=== PATIENT | female | born 1930 | race Caucasian/White ===

== ENCOUNTER → 2016-08-27 | Outpatient (CLI) | payer BC ==
[~2016-08-27] MED LIST: ARC10 PO; ASPEC81 PO; ATOR10TA82 PO; ATV5 PO; CALCTAB5 PO; CNT PO; FLUO20CA35 PO; MULT-190 PO; SYN150 PO
== END | disposition home or self-care (01) ==
LOC: C.LABSPEC 12:53
PROVIDERS: ATTEND Internal Medicine
DX: E03.9 Hypothyroidism, unspecified (principal)

== ENCOUNTER → 2016-09-04 | Outpatient (CLI) | payer BC ==
[~2016-09-04] MED LIST changes: -ATOR10TA82 PO; +ATOR10TA88 PO
--- NOTE | 2016-09-04 16:30 | DIAGNOSTIC IMAGING REPORT ---
LEFT SHOULDER 3 VIEWS HISTORY: LEFT SHOULDER PAIN COMPARISON: None. FINDINGS: There is no fracture or dislocation. There is distal resection of the left clavicle. There is narrowing of the subacromial space. Moderate to space narrowing at the glenohumeral joint with marginal osteophytes. There appears to be a 7 mm intra-articular loose body within the subacromial space. IMPRESSION: 1. No acute fracture or dislocation within the left shoulder. 2. Moderate glenohumeral joint osteoarthritis. 3. A 7 mm intra-articular loose body within the subacromial space. 4. Narrowing of the subacromial space consistent with chronic rotator cuff injury. Electronically signed by: Seth Delgado M.D. 09/04/2016 4:28 PM Dictated Date/Time: 09/04/2016 4:26 PM
== END | disposition home or self-care (01) ==
LOC: C.RDSM 15:33
PROVIDERS: ATTEND Physical Medicine & Rehabilitation Sports Medicine
DX: M25.512 Pain in left shoulder (principal); M19.012 Primary osteoarthritis, left shoulder; M24.012 Loose body in left shoulder; M25.812 Other specified joint disorders, left shoulder

== ENCOUNTER → 2017-05-06 | Outpatient (CLI) | payer BC ==
--- NOTE | 2017-05-06 17:16 | MAMMOGRAPHY REPORT ---
BILATERAL DIGITAL SCREENING MAMMOGRAM WITH CAD: 05/06/2017 CLINICAL HISTORY: Routine screening. Patient has no complaints. TECHNIQUE: Bilateral CC and MLO views were obtained. Current study was also evaluated with a Compute r Aided Detection (CAD) system. COMPARISON: Comparison is made to exams dated: 05/02/2016 mammogram, 02/07/2015 mammogram, 01/12/2014 ma mmogram, 08/06/2010 mammogram, 02/14/2015 mammogram - [facility], and 07/11/2008. BREAST COMPOSITION: There are scattered areas of fibroglandular density in both breasts. FINDINGS: There is a stable ribbon shaped metallic biopsy marker clip in the right upper outer quadra nt. Mild vascular calcification and scattered benign rim and round calcifications in the breasts. N o new suspicious mass, architectural distortion or cluster of microcalcifications is seen. IMPRESSION: ACR BI-RADS CATEGORY 1: NEGATIVE There is no mammographic evidence of malignancy. A 1 year screening mammogram is recommended. The pa tient will receive written notification of the results. Approximately 10% of breast cancers are not detected with mammography. A negative mammographic report should not delay biopsy if a clinically suggestive mass is present. Laura Alba M.D. ay/:05/06/2017 15:21:39 Hotel Baggage Handler: Mey CISSE(R)(M), [facility] letter sent: Normal 1/2 BI-RADS Code: ACR BI-RADS Category 1: Negative
== END | disposition home or self-care (01) ==
LOC: C.MAMM 13:48
PROVIDERS: ATTEND Internal Medicine
DX: Z12.31 Encounter for screening mammogram for malignant neoplasm of breast (principal)

== ENCOUNTER → 2017-08-29 | Outpatient (CLI) | payer BC ==
[~2017-08-29] MED LIST changes: +ATOR10TA82 PO; -ATOR10TA88 PO
[2017-09-02 15:49] LABS: FECAL OCCULT BLOOD #1 NEGATIVE (NEGATIVE); FECAL OCCULT BLOOD #2 POSITIVE (NEGATIVE); FECAL OCCULT BLOOD #3 POSITIVE (NEGATIVE)
== END | disposition home or self-care (01) ==
LOC: C.LABSPEC 14:50
PROVIDERS: ATTEND Internal Medicine
DX: Z12.11 Encounter for screening for malignant neoplasm of colon (principal)

== ENCOUNTER → 2017-10-01 | Outpatient (CLI) | payer BC ==
[2017-10-01 14:33] LABS: BASO % 0.7 %; BASO ABS # 0.05 K/uL (0-0.2); EOS % 7.2 %; EOS ABS # 0.55 K/uL (0-0.5); HEMATOCRIT 40.1 % (37-47); HEMOGLOBIN 12.3 g/dL (12.0-16.0); IG# 0.01 K/uL (0.00-0.02); LYMPH % 15.7 %; MEAN CELL VOLUME 93.7 fL (80-100); MEAN CORPUSCULAR HEMOGLOBIN 28.7 pg (25-34); MEAN CORPUSCULAR HGB CONC 30.7 g/dl (32-36); MONO % 9.3 %; MONO ABS # 0.71 K/uL (0.11-0.59); NEUT ABS # 5.11 K/uL (1.4-6.5); PLATELET COUNT 210 K/uL (130-400); WHITE BLOOD COUNT 7.63 K/uL (4.8-10.8)
[2017-10-01 14:45] LABS: ALBUMIN 3.6 gm/dl (3.4-5.0); ALT/SGPT 25 U/L (12-78); AST/SGOT 21 U/L (15-37); BLOOD UREA NITROGEN 25 mg/dl (7-18); CALCIUM 9.2 mg/dl (8.5-10.1); CARBON DIOXIDE 29 mmol/L (21-32); CHOLESTEROL 146 mg/dl (0-200); CREATININE 1.04 mg/dl (0.60-1.20); GLUCOSE 75 mg/dl (70-99); LDL CHOLESTEROL (DIRECT) 75 mg/dl; POTASSIUM 4.4 mmol/L (3.5-5.1); SODIUM 138 mmol/L (136-145); TOTAL PROTEIN 6.7 gm/dl (6.4-8.2)
[2017-10-01 14:52] LABS: ALKALINE PHOSPHATASE 54 U/L (45-117)
== END | disposition home or self-care (01) ==
LOC: C.LABSPEC 13:12
PROVIDERS: ATTEND Internal Medicine
DX: I10 Essential (primary) hypertension (principal); E78.5 Hyperlipidemia, unspecified; E03.9 Hypothyroidism, unspecified

== ENCOUNTER → 2018-04-01 | Outpatient (CLI) | payer BC ==
[2018-04-01 17:43] LABS: BASO % 0.8 %; BASO ABS # 0.06 K/uL (0-0.2); EOS % 5.8 %; EOS ABS # 0.42 K/uL (0-0.5); HEMATOCRIT 40.8 % (37-47); HEMOGLOBIN 13.2 g/dL (12.0-16.0); IG# 0.01 K/uL (0.00-0.02); LYMPH % 16.9 %; LYMPH ABS # 1.21 K/uL (1.2-3.4); MEAN CELL VOLUME 90.3 fL (80-100); MEAN CORPUSCULAR HEMOGLOBIN 29.2 pg (25-34); MEAN CORPUSCULAR HGB CONC 32.4 g/dl (32-36); MEAN PLATELET VOLUME 11.5 fL (7.4-10.4); MONO % 10.3 %; MONO ABS # 0.74 K/uL (0.11-0.59); NEUT % 66.1 %; NEUT ABS # 4.74 K/uL (1.4-6.5); PLATELET COUNT 220 K/uL (130-400); RED CELL DISTRIBUTION WIDTH CV 14.2 % (11.5-14.5); RED CELL DISTRIBUTION WIDTH SD 46.8 fL (36.4-46.3); WHITE BLOOD COUNT 7.18 K/uL (4.8-10.8)
[2018-04-01 17:53] LABS: ALBUMIN 3.6 gm/dl (3.4-5.0); ALKALINE PHOSPHATASE 74 U/L (45-117); ALT/SGPT 28 U/L (12-78); AST/SGOT 25 U/L (15-37); BLOOD UREA NITROGEN 24 mg/dl (7-18); CARBON DIOXIDE 28 mmol/L (21-32); CREATININE 1.16 mg/dl (0.60-1.20); GLUCOSE 94 mg/dl (70-99); POTASSIUM 4.7 mmol/L (3.5-5.1); SODIUM 135 mmol/L (136-145); TOTAL PROTEIN 6.9 gm/dl (6.4-8.2)
== END | disposition home or self-care (01) ==
LOC: C.LABSPEC 17:29
PROVIDERS: ATTEND Internal Medicine
DX: I10 Essential (primary) hypertension (principal); F03.90 Unspecified dementia, unspecified severity, without behavioral disturbance, psychotic disturbance, mood disturbance, and anxiety; M62.81 Muscle weakness (generalized)

== ENCOUNTER 2018-09-19 19:41 | Inpatient (IN) ==
--- NOTE | 2018-09-19 23:59 | History & Physical Report ---
Date of Service September 19, 2018 Assessment & Plan (1) Distal radial fracture: 87F here for help with care for acute wrist fracture in setting of severe dementia. Family and PCP feel that they cannot give adequate care in the home. Wrist fracture -splint in tact, routine care, recommend Ortho follow up be arranged -tylenol PRN, furbiprofen scheduled (home med continued) -studies reviewed -- does not appear to have any other injuries in neck, skull, elbow. -PT/OT to eval/treat -discharge planning to help with planning inpatient rehab as possibility. FEN/GI: heart healthy diet DVT ppx: lovenox q24h CODE STATUS: full DISPO: med/surg, PT/OT pending, DC planning for possible acute rehab placement (2) Fall: pt/ot as above (3) Dementia: continued home medications (4) HTN (hypertension): continue home medications -pt is tachycardic here, may be situational given wrist fracture and confusion. Follow History of Present Illness Chief Complaint: wrist fracture, dementia Primary Care Provider: Jeffery Zarco MD 87F here with wrist fracture after a mechanical fall while at home yesterday. Pt presented to the ED earlier today, and imaging of her wrist revealed mildly displaced distal radius fracture of left hand, which was then cast and splinted. Imaging of her head, neck, and elbow did not reveal any acute abnormalities. She was discharged home with routine care instructions. Pt's family struggled to take care of pt in light of her confusion, called PCP for advice and decided together to return and seek more care here. They have her left extremity covered with a dish towel and secured by tape because "she won't stop picking at it". Pt does not endorse any pain at the moment in her left hand. HPI is limited due to pt's dementia. Family does not endorse any change in symptoms from earlier today. Allergies Allergy/AdvReac Type Severity Reaction Status Date / Time Sulfa (Sulfonamide Allergy Mild Unknown Verified 09/19/18 20:26 Antibiotics) Home Medications Home Medications Medication Instructions Recorded Confirmed Type acetaminophen [Tylenol Extra 1,000 mg PO UD 08/14/18 09/19/18 History Strength] atorvastatin 10 mg PO QAM 08/14/18 09/19/18 History calcium carbonate-vitamin D3 1 tab PO QAM 08/14/18 09/19/18 History [Caltrate 600 + D] donepezil 10 mg PO HS 08/14/18 09/19/18 History escitalopram oxalate 20 mg PO QAM 08/14/18 09/19/18 History finasteride [Propecia] 1 mg PO QAM 08/14/18 09/19/18 History flurbiprofen 100 mg PO BID 08/14/18 09/19/18 History levothyroxine 125 mcg PO 5XWK 08/14/18 09/19/18 History levothyroxine 225 mcg PO 2XWK 08/14/18 09/19/18 History lorazepam 0.5 mg PO BID 08/14/18 09/19/18 History ppiuvoimurim-ijwl-zeybx acid 1 tab PO QAM 08/14/18 09/19/18 History [Centrum] vit C-vit U-jbpmaf-jgy-om-3 1 cap PO BID 08/14/18 09/19/18 History [Ocuvite] lisinopril 10 mg PO DAILY 09/19/18 09/19/18 History memantine [Namenda XR] 28 mg PO QAM 09/19/18 09/19/18 History Past Med/Surg History Medical History Dementia Osteoarthritis of knees, bilateral Surgical History Hx laparoscopic cholecystectomy Family History Other No pertinent family history Social History marital status: Current Living Situation: Spouse current occupational status: retired Feels Safe at Home: Yes Smoking Status: Never smoker Hx Alcohol Use: No Hx Substance Use: No Preferred Language: Lao Communication Ability: Effective Hearing Ability: Normal Review of Systems Unobtainable due to mental health condition Physical Exam 2 Vital Signs (Past 24 Hours): Last Vital Signs Temp 36.4 C L 09/19/18 19:44 Pulse 113 H 09/19/18 19:44 Resp 18 09/19/18 19:44 BP 153/83 H 09/19/18 19:44 Pulse Ox 96 09/19/18 19:44 Physical Exam: Vitals noted as above and within normal limits. GENERAL: Awake, pleasantly confused, well-appearing, in no distress HENT: Normocephalic, atraumatic. EYES: Normal conjunctiva. Sclera non-icteric. EOMI. NECK: Supple. Full range of motion. no JVD RESPIRATORY: Clear to auscultation. CARDIAC: Regular rate, normal rhythm. Extremities warm and well perfused. Pulses equal. ABDOMEN: Soft, non-distended. No tenderness to palpation. No rebound or guarding. No masses. Bowel sounds are normal. LOWER EXTREMITIES: Calves are equal size bilaterally and non-tender. No edema. No discoloration. NEURO: No gross focal motor deficits noted. CN II-XII in tact SKIN: Rash not present. No jaundice noted. MSK: left wrist in splint, in tact. Sensation in tact distal to splint. Code Status & VTE Plan Code Status full Supervising Physician Co-Signing Physician Notes Attending addendum: I have physically seen this patient, have supervised the medical residents activities, and agree with the H&P unless as otherwise noted. Assessment and Plan: Distal left radial fracture/Colles' fracture-- Observation to medical floor due to inability to be cared for at home. Consult forensic social worker regarding help with disposition: Home with services versus inpatient rehab. Consult PT/OT. Acetaminophen 1000 mg IV every 8 hours as needed mild to moderate pain or temperature. Remainder of orders and notations as noted. Resident Activity Tracking Resident Involvement: Resident Care Provided Care Provided: [facility] _ (1) Dementia Alzheimer's disease onset: Dementia behavioral disturbance: without behavioral disturbance Dementia type: unspecified type Qualified Code(s): F03.90 - Unspecified dementia without behavioral disturbance (2) Distal radial fracture Encounter type: initial encounter Fracture healing: Fracture morphology: Colles' Fracture type: closed Laterality: left Open fracture type: Qualified Code(s): S52.532A - Colles' fracture of left radius, initial encounter for closed fracture (3) Fall Encounter type: initial encounter Qualified Code(s): W19.XXXA - Unspecified fall, initial encounter
--- NOTE | 2018-09-20 00:36 | Emergency Department Note ---
History of Present Illness General Chief complaint: Referred by Doctor Stated complaint: PICKING AT SPLINT; TOLD TO COME IN BY PCP Source: family Mode of arrival: ambulatory Limitations: other (Dementia) History of Present Illness This patient is an 87-year-old female who presents to the emergency department accompanied by her family. The family reports the patient was seen here earlier today due to a fractured wrist. She was placed in a splint and they report that she will not stop pulling at the bandages. They do not feel that they will be able to take her home and care for her due to her dementia. In addition to this, they reports she has some knee problems and has been having trouble getting around due to this fracture. They report they called their primary care provider, who recommended that she come here to be observed overnight for possible placement at rehab. Home Medications Home Medications Medication Instructions Recorded Confirmed Type acetaminophen [Tylenol Extra 1,000 mg PO UD 08/14/18 09/19/18 History Strength] atorvastatin 10 mg PO QAM 08/14/18 09/19/18 History calcium carbonate-vitamin D3 1 tab PO QAM 08/14/18 09/19/18 History [Caltrate 600 + D] donepezil 10 mg PO HS 08/14/18 09/19/18 History escitalopram oxalate 20 mg PO QAM 08/14/18 09/19/18 History finasteride [Propecia] 1 mg PO QAM 08/14/18 09/19/18 History flurbiprofen 100 mg PO BID 08/14/18 09/19/18 History levothyroxine 125 mcg PO 5XWK 08/14/18 09/19/18 History levothyroxine 225 mcg PO 2XWK 08/14/18 09/19/18 History lorazepam 0.5 mg PO BID 08/14/18 09/19/18 History tykbzbsdtpsl-bvew-vhwue acid 1 tab PO QAM 08/14/18 09/19/18 History [Centrum] vit C-vit S-loggwf-zfu-om-3 1 cap PO BID 08/14/18 09/19/18 History [Ocuvite] lisinopril 10 mg PO DAILY 09/19/18 09/19/18 History memantine [Namenda XR] 28 mg PO QAM 09/19/18 09/19/18 History Allergies Allergy/AdvReac Type Severity Reaction Status Date / Time Sulfa (Sulfonamide Allergy Mild Unknown Verified 09/19/18 20:26 Antibiotics) Past Med/Surg History Medical History Dementia Osteoarthritis of knees, bilateral Surgical History Hx laparoscopic cholecystectomy Family History Other No pertinent family history Social History marital status: Current Living Situation: Spouse current occupational status: retired Feels Safe at Home: Yes Smoking Status: Never smoker Hx Alcohol Use: No Hx Substance Use: No Preferred Language: Russian Communication Ability: Effective Hearing Ability: Normal Review of Systems A total of 10 systems reviewed and were otherwise negative Physical Exam Vital Signs Vital Signs - 24 hr 09/19/18 19:44 Temperature 36.4 C L Temperature Source Oral Sepsis Recent Fever Within 48 Hours No Sepsis Action Taken by Nursing No Action Required Pulse Rate 113 H Respiratory Rate 18 Respiratory Effort / Characteristics Non-Labored Spontaneous Respiratory Depth Normal Blood Pressure 153/83 H Blood Pressure Mean 106 Pulse Oximetry 96 Oxygen Delivery Method Room Air VITALS: Vitals are noted on the nurse's note and reviewed by myself. Vital signs stable. GENERAL: This is a 89-year-old female, in no acute distress, well-developed well -nourished. SKIN: The skin was without rashes, erythema, edema, or bruising. EYES: Pupils equal round and reactive to light and accommodation. MOUTH: Mucous membranes moist. NECK: Supple without nuchal rigidity. HEART: Regular rate and rhythm without murmurs gallops or rubs. LUNGS: Clear to auscultation bilaterally without wheezes, rales or rhonchi. MUSCULOSKELETAL: Ortho-Glass splint in place on the left upper extremity. NEURO: Patient is oriented to person only and is pleasantly demented. Course Consultations Consultation #1: Dr. Vladimir Kulkarni [facility] hospitalist Medical Decision Making Medical Records Attestation: I reviewed the patient's medical records. Home Medications Current Medication List: was personally reviewed by me Blood Pressure Blood Pressure Findings: Elevated blood pressure Blood Pressure Disposition: further management by hospitalist JOYCELYN Narrative The patient was evaluated as above. Previous records were reviewed. The patient was seen earlier today and sustained a fracture of her wrist. The family is now concerned because the patient has been picking at her splint and they are unsure if they will be able to take care of her at home. For this reason, case management did speak with the patient. They did not feel they would be able to place the patient into rehabilitation this evening, therefore hospitalist service was consulted for observation and placement. Impression & Plan Fracture of left wrist Discharge Plan Visit Data Chief Complaint: Referred by Doctor Stated Complaint: PICKING AT SPLINT; TOLD TO COME IN BY PCP ED Provider: Adeel Gamboa ED Midlevel Provider: Mariya Rashid Discharge Problem: Fracture of left wrist Patient Disposition: Admitted As Inpatient Forms Stand Alone Forms: [facility] Prescriptions Prescriptions: No Action atorvastatin 10 mg tablet 10 mg PO QAM RF: 0 donepezil 10 mg tablet 10 mg PO HS RF: 0 acetaminophen [Tylenol Extra Strength] 500 mg Tablet 1,000 mg PO UD RF: 0 lorazepam 0.5 mg tablet 0.5 mg PO BID RF: 0 levothyroxine 125 mcg tablet 125 mcg PO 5XWK RF: 0 levothyroxine 125 mcg tablet 225 mcg PO 2XWK RF: 0 flurbiprofen 100 mg tablet 100 mg PO BID RF: 0 finasteride [Propecia] 1 mg Tablet 1 mg PO QAM RF: 0 escitalopram oxalate 20 mg tablet 20 mg PO QAM RF: 0 vit C-vit C-yapere-rhe-om-3 [Ocuvite] 585-61-1-150 jj-apxy-dp-mg Capsule 1 cap PO BID RF: 0 hfszrvrvgmyt-chzd-ajmaf acid [Centrum] 18-400 mg-mcg Tablet 1 tab PO QAM RF: 0 calcium carbonate-vitamin D3 [Caltrate 600 + D] 600 mg (1,500 mg)-800 unit Tablet,Chewable 1 tab PO QAM RF: 0 lisinopril 10 mg Tablet 10 mg PO DAILY RF: 0 memantine [Namenda XR] 28 mg capsule,sprinkle,ER 24hr 28 mg PO QAM RF: 0 Referrals Referrals: Jeffery Zarco MD [Primary Care Provider] -
--- NOTE | 2018-09-20 01:05 | Emergency Department Note ---
ED Visit Note Patient was seen by our PA/HEALTH SAFETY INSTRUCTOR. I was involved in the patient's care and did evaluate the patient myself. I was involved in the care throughout the ER stay. The patient is being brought into the hospital as she cannot leave her splint alone. There is concerned that she will cause herself harm. Hospitalist was consulted. .
[2018-09-20] MEDS ORDERED: ALUMINUM/MAGNESIUM SUSP 30 ML UDC PO PRN (01:13)
[2018-09-20] MEDS ORDERED: POLYETHYLENE (MIRALAX) 17 GM PACK PO PRN (01:13)
[2018-09-20] MEDS ORDERED: LORazepam 0.5 MG TAB PO SCH (01:13)
[2018-09-20] MEDS: DONEPEZIL HCL 10 MG TAB PO SCH ×2 (01:57→20:30)
[2018-09-20] MEDS: LEVOTHYROXINE SODIUM 125 MCG TABLET PO SCH ×2 (05:27→05:30)
[2018-09-20] MEDS: ESCITALOPRAM OXALATE 20 MG TAB PO SCH (07:30)
[2018-09-20] MEDS ORDERED: HydrALAZINE HCL 20 MG/ML VIAL IV STA (07:45)
[2018-09-20] MEDS ORDERED: cloNIDine HCl 0.1 MG TAB PO ONE (07:49)
[2018-09-20 08:09] LABS: Hematocrit (blood only) 40.9 % (37-47); Hemoglobin 13.4 g/dL (12.0-16.0); Mean Corpuscular Hgb Conc 32.8 g/dL (32-36); Mean Corpuscular Volume 89.5 fL (80-100); Mean Platelet Volume 10.1 fL (7.4-10.4); Platelet Count 226 K/uL (130-400); RDW Coefficient of Variation 15.9 % (11.5-14.5); RDW Standard Deviation 51.9 fL (36.4-46.3); Red Blood Count 4.57 M/uL (4.2-5.4); White Blood Count 10.08 K/uL (4.8-10.8)
[2018-09-20] MEDS ORDERED: LORazepam 0.5 MG TAB PO PRN (08:24)
[2018-09-20] MEDS: CEROVITE ADV FORMULA TAB PO SCH (08:28)
[2018-09-20] MEDS: CALCIUM 600MG + VIT D 400 IU TAB PO SCH (08:29)
[2018-09-20] MEDS: ATORVASTATIN 10 MG TAB PO SCH (08:29)
[2018-09-20 08:36] LABS: Albumin Level 3.5 gm/dl (3.4-5.0); BUN Creatinine Ratio 31.5 (10-20); Creatinine Clr Calc Pharmacy 33.1 ml/min; Est GFR (African American) 70.4; Est GFR (Non-African American) 60.7; Magnesium 2.3 mg/dl (1.8-2.4); Potassium 3.9 mmol/L (3.5-5.1)
[2018-09-20 08:39] LABS: Bilirubin,Total 1.1 mg/dl (0.2-1); Globulin 3.4 gm/dl (2.5-4.0); Total Protein 6.9 gm/dl (6.4-8.2)
[2018-09-20] MEDS ORDERED: LISINOPRIL 10 MG TAB PO SCH (09:00)
[2018-09-20] MEDS ORDERED: VIT C VIT E LUTEIN MIN OM PO SCH (09:00)
[2018-09-20] MEDS: [UNRECOGNIZED DRUG - REMARK] SCH ×3 (09:14→23:16)
[2018-09-20] MEDS ORDERED: LABETALOL HCL IV 5 MG/ML 20ML IV STA ×2 (11:30→14:21)
[2018-09-20 12:01] LABS: Partial Thromboplastin Ratio 1.1; Partial Thromboplastin Time 27.9 Seconds (21.0-31.0); Prothrombin Time 10.1 Seconds (9.0-12.0)
[2018-09-20] MEDS: ENOXAPARIN INJ 40 MG/0.4 ML SYR SQ SCH (12:25)
[2018-09-20] MEDS ORDERED: LABETALOL HCL IV 5 MG/ML 20ML IV ONE (12:49)
--- NOTE | 2018-09-20 15:26 | Hospitalist Progress Note ---
Date of Service September 20, 2018 Assessment & Plan (1) Distal radial fracture: - Presented to ER on 09/19 with distal radial fracture; was splinted and discharged to home - returned in the evening due to issues caring for her at home. - Continue splint; will need follow up with orthopedics as outpatient. - Tylenol prn pain; home Flurbiprofen is non-formulary. - Avoid narcotics if possible. (2) Fall: - Her cannot care for her at home; 2 daughters do not live close by. - PT/OT ordered -- her daughter has inquired about skilled nursing placement. (3) Acute encephalopathy: - Possibly related to hospital delirium vs. infection. - U/a pending collection to rule out infection; consider CXR. - Avoid overuse of benzos/narcotics if possible. - TSH and Free T4 in the AM. (4) Dementia: - Continue home Aricept 10 mg qhs; holding Namenda XR (non-formulary) (5) HTN (hypertension): - Pt. has been hypertensive with SBP >200's; also persistently tachycardic , monitoring coordinator showed sinus tach. - Likely related to uncontrolled anxiety. - Received Clonidine 0.1 mg with no improvement. - Upgraded to PCU/tele; received Labetalol 10 mg IV x 2 doses with improvement. - Increase home Lisinopril to 20 mg daily. (6) Hyperlipidemia: - Continue Atorvastatin as prescribed. (7) Depression: - Continue Lexapro as prescribed. (8) Anxiety: - Continue home Ativan 0.5 mg PO BID scheduled. (9) Hypothyroidism: - Continue Synthroid as prescribed. - TSH and Free T4 in AM -- recent hyperthyroidism noted on lab work. (10) DVT prophylaxis: - Lovenox 40 mg daily. Dispo: Upgraded to PCU/tele for IV labatolol. Will need PT/OT eval and discharge to rehab once clinically stable. Supervising Physician Co-Signing Physician Notes FAITH Supervision Note: I did not personally see or examine the patient today, but I verified all campbell points of FAITH Galvan's assessment and plan with the following exceptions/ additions: None Subjective Pt. remains confused today. Family is at bedside and provides history. Pt. is not at baseline -- she has underlying dementia but now has acute delirium. Her has had trouble with managing her care at home -- the family would prefer placement following discharge. She is very anxious -- on Ativan BID at home. BP has remained elevated despite Clonidine 0.1 mg on the floor. Upgraded to telemetry, received Labetalol 10 mg IV x 2 doses with improvement. Will continue to monitor. Review of Systems Unobtainable due to cognitive status Physical Exam 2 Vital Signs (Past 24 Hours): Last Vital Signs Temp 36.6 C 09/20/18 12:00 Pulse 112 H 09/20/18 13:00 Resp 18 09/20/18 13:00 BP 158/77 H 09/20/18 14:38 Pulse Ox 99 09/20/18 12:00 Physical Exam: General: Appears very anxious, laying in bed; family at bedside. HEENT: NC/AT; PERRLA with EOMI; [place] conjunctiva, MMM. N Neck: Supple and nontender Cardiac: RRR w/o murmurs, gallops or rubs Lungs: CTA bilaterally; No rhonchi, wheezing, or rales Abdomen: Bowel normoactive X 4; Nontender to palpation Extremities: Warm. Left wrist in splint, fingers intact to light sensation. Neuro: No focal weakness Skin: No rash Results & Data Laboratory Results 09/20/18 09/20/18 09/20/18 Range/Units 11:26 07:53 07:53 WBC 10.08 (4.8-10.8) K/uL RBC 4.57 (4.2-5.4) M/uL Hgb 13.4 (12.0-16.0) g/dL Hct 40.9 (37-47) % MCV 89.5 (80-100) fL MCH 29.3 (25-34) pg MCHC 32.8 (32-36) g/dL RDW Std Deviation 51.9 H (36.4-46.3) fL RDW Coeff of Jhon 15.9 H (11.5-14.5) % Plt Count 226 (130-400) K/uL MPV 10.1 (7.4-10.4) fL PT 10.1 (9.0-12.0) Seconds INR 1.0 (0.9-1.1) APTT 27.9 (21.0-31.0) Seconds PTT Ratio 1.1 Sodium 136 (136-145) mmol/L Potassium 3.9 (3.5-5.1) mmol/L Chloride 103 (98-107) mmol/L Carbon Dioxide 24 (21-32) mmol/L Anion Gap 9.0 (3-11) BUN 27 H (7-18) mg/dl Creatinine 0.86 (0.6-1.2) mg/dl Est Cr Clr Drug Dosing 33.1 ml/min Est GFR ( Amer) 70.4 Est GFR (Non-Af Amer) 60.7 BUN/Creatinine Ratio 31.5 H (10-20) Glucose 103 H (70-99) mg/dl Calcium 9.0 (8.5-10.1) mg/dl Magnesium 2.3 (1.8-2.4) mg/dl Total Bilirubin 1.1 H (0.2-1) mg/dl AST 24 (15-37) U/L ALT 22 (12-78) U/L Alkaline Phosphatase 79 (45-117) U/L Total Protein 6.9 (6.4-8.2) gm/dl Albumin 3.5 (3.4-5.0) gm/dl Globulin 3.4 (2.5-4.0) gm/dl Albumin/Globulin Ratio 1.0 (0.9-2) _ (1) Dementia Alzheimer's disease onset: Dementia behavioral disturbance: without behavioral disturbance Dementia type: unspecified type Qualified Code(s): F03.90 - Unspecified dementia without behavioral disturbance (2) Distal radial fracture Encounter type: initial encounter Fracture healing: Fracture morphology: Colles' Fracture type: closed Laterality: left Open fracture type: Qualified Code(s): S52.532A - Colles' fracture of left radius, initial encounter for closed fracture (3) Fall Encounter type: initial encounter Qualified Code(s): W19.XXXA - Unspecified fall, initial encounter
[2018-09-20] MEDS: LORazepam 0.5 MG TAB PO SCH (20:32)
[2018-09-20] MEDS: ACETAMINOPHEN 325 MG TAB PO PRN (20:32)
[2018-09-21 00:25] LABS: Appearance Urine Clear (Clear); Bacteria Urine Automated Negative (Negative); Bilirubin Urine Negative (Negative); Blood Urine Negative (Negative); Cast Urine Automated 0 /lpf (0-5); Color Urine Yellow; Epithelial Cell Urine Auto >30 /lpf (0-5); Glucose Urine UA Negative (Negative); Ketones Urine 1+ (Negative); Leukocyte Esterase Urine Negative (Negative); Nitrite Urine Negative (Negative); Protein Urine Trace (Negative); RBC Urine Automated 0-4 /hpf (0-4); Specific Gravity Urine 1.021 (1.000-1.030); Urobilinogen Urine Negative (Negative); pH Urine 6.5 (4.5-7.5)
[2018-09-21 01:03] LABS: Renal Epithelial Cells Urine 20-30 /lpf (0-5)
[2018-09-21] MEDS: LEVOTHYROXINE SODIUM 125 MCG TABLET PO SCH (05:12)
[2018-09-21] MEDS: [UNRECOGNIZED DRUG - REMARK] SCH (06:52)
[2018-09-21 06:56] LABS: Hematocrit (blood only) 39.9 % (37-47); Hemoglobin 13.1 g/dL (12.0-16.0); Mean Corpuscular Hgb Conc 32.8 g/dL (32-36); Mean Corpuscular Volume 88.3 fL (80-100); Mean Platelet Volume 10.3 fL (7.4-10.4); Platelet Count 256 K/uL (130-400); RDW Coefficient of Variation 16.2 % (11.5-14.5); RDW Standard Deviation 52.2 fL (36.4-46.3); Red Blood Count 4.52 M/uL (4.2-5.4); White Blood Count 8.98 K/uL (4.8-10.8)
[2018-09-21 07:35] LABS: BUN Creatinine Ratio 28.9 (10-20); Calcium 8.9 mg/dl (8.5-10.1); Creatinine Clr Calc Pharmacy 30.6 ml/min; Est GFR (Non-African American) 55.3; Magnesium 2.3 mg/dl (1.8-2.4); Potassium 3.9 mmol/L (3.5-5.1)
[2018-09-21 07:46] LABS: T4 Free Thyroxine 2.2 ng/dl (0.8-1.6)
[2018-09-21] MEDS: ACETAMINOPHEN 325 MG TAB PO PRN (08:01)
[2018-09-21] MEDS: LORazepam 0.5 MG TAB PO SCH ×3 (08:01→20:18)
[2018-09-21] MEDS: CEROVITE ADV FORMULA TAB PO SCH (08:02)
[2018-09-21] MEDS: ESCITALOPRAM OXALATE 20 MG TAB PO SCH (08:02)
[2018-09-21] MEDS: LISINOPRIL 20 MG TAB PO SCH (08:02)
[2018-09-21] MEDS: ENOXAPARIN INJ 40 MG/0.4 ML SYR SQ SCH (08:02)
[2018-09-21] MEDS: ATORVASTATIN 10 MG TAB PO SCH (08:02)
[2018-09-21] MEDS: CALCIUM 600MG + VIT D 400 IU TAB PO SCH (08:02)
[2018-09-21] MEDS: METOPROLOL TARTRATE 25 MG TAB PO SCH ×2 (09:13→20:14)
[2018-09-21] MEDS ORDERED: KETOROLAC 30 MG/ML VIAL ONE (12:22)
[2018-09-21] MEDS ORDERED: KETOROLAC 30 MG/ML VIAL IV ONE (12:46)
[2018-09-21] MEDS: MEMANTINE HCL 10 MG TAB PO SCH ×3 (13:51→20:15)
--- NOTE | 2018-09-21 13:55 | Hospitalist Progress Note ---
Date of Service September 21, 2018 Assessment & Plan (1) Distal radial fracture: - Presented to ER on 09/19 with distal radial fracture; was splinted and discharged to home - returned in the evening due to issues caring for her at home. - Continue splint; consult ortho as inpt for cast. - Tylenol prn pain; home Flurbiprofen is non-formulary. - Avoid narcotics if possible. (2) Fall: - Her cannot care for her at home; 2 daughters do not live close by. - PT/OT ordered -- will be discharged to acute rehab vs. SNF. (3) Acute encephalopathy: - Possibly related to hospital delirium vs. infection. Does not appear to be at baseline. - U/a negative for infection. - Avoid overuse of benzos/narcotics if possible. - TSH 0.816, Free T4 2.20. (4) Dementia: - Continue home Aricept 10 mg qhs; Namenda 10 mg BID (home med is non- formulary) (5) HTN (hypertension): - Was hypertensive with SBP >200, now improving. - Likely related to uncontrolled anxiety. - Increased Lisinopril to 20 mg daily. - Started Metoprolol 25 mg PO BID. (6) Hyperlipidemia: - Continue Atorvastatin as prescribed. (7) Depression: - Continue Lexapro as prescribed. (8) Anxiety: - Increase home Ativan to 0.5 mg PO TID. (9) Hypothyroidism: - Continue Synthroid as prescribed. - TSH WNL, Free T4 elevated on labwork. (10) DVT prophylaxis: - Lovenox 40 mg daily. Dispo: Discharge to acute rehab vs. SNF pending placement. Supervising Physician Co-Signing Physician Notes Attending Attestation - Chart reviewed in detail, and care plan d/w FAITH Clements. I agree w/ the campbell components of her documentation. Pt with labile/uncontrolled BPs - agree with addition of beta tamera and NICOLA titration. Agree that labile BPs are likely due to agitation from dementia with behavioral disturbance/delirium. Dispo planning for placement. David Day MD Subjective Pt. is more alert this morning, less agitated. BP remained elevated this morning , added Metoprolol 25 mg BID. Now stabilized, SBP 160-170's. PT/OT evaluated pt , will place referral for acute rehab. Review of Systems Unobtainable due to cognitive status Physical Exam 2 Vital Signs (Past 24 Hours): Last Vital Signs Temp 36.3 C L 09/21/18 11:41 Pulse 77 09/21/18 11:41 Resp 12 09/21/18 11:41 BP 174/93 H 09/21/18 11:41 Pulse Ox 97 09/21/18 11:46 Physical Exam: General: Appears very anxious, laying in bed; family at bedside. HEENT: NC/AT; PERRLA with EOMI; [place] conjunctiva, MMM. N Neck: Supple and nontender Cardiac: RRR w/o murmurs, gallops or rubs Lungs: CTA bilaterally; No rhonchi, wheezing, or rales Abdomen: Bowel normoactive X 4; Nontender to palpation Extremities: Warm. Left wrist in splint. Neuro: No focal weakness Skin: No rash Results & Data Laboratory Results 09/21/18 09/21/18 09/21/18 Range/Units 06:39 06:39 00:15 WBC 8.98 (4.8-10.8) K/uL RBC 4.52 (4.2-5.4) M/uL Hgb 13.1 (12.0-16.0) g/dL Hct 39.9 (37-47) % MCV 88.3 (80-100) fL MCH 29.0 (25-34) pg MCHC 32.8 (32-36) g/dL RDW Std Deviation 52.2 H (36.4-46.3) fL RDW Coeff of Jhon 16.2 H (11.5-14.5) % Plt Count 256 (130-400) K/uL MPV 10.3 (7.4-10.4) fL Sodium 137 (136-145) mmol/L Potassium 3.9 (3.5-5.1) mmol/L Chloride 104 (98-107) mmol/L Carbon Dioxide 24 (21-32) mmol/L Anion Gap 9.0 (3-11) BUN 27 H (7-18) mg/dl Creatinine 0.93 (0.6-1.2) mg/dl Est Cr Clr Drug Dosing 30.6 ml/min Est GFR ( Amer) 64.0 Est GFR (Non-Af Amer) 55.3 BUN/Creatinine Ratio 28.9 H (10-20) Glucose 97 (70-99) mg/dl Calcium 8.9 (8.5-10.1) mg/dl Magnesium 2.3 (1.8-2.4) mg/dl TSH 0.816 (0.300-4.500) uIu/ml Free T4 2.20 H (0.8-1.6) ng/dl Urine Color Yellow Urine Appearance Clear (Clear) Urine pH 6.5 (4.5-7.5) Ur Specific [place] 1.021 (1.000-1.030) Urine Protein Trace H (Negative) Urine Glucose (UA) Negative (Negative) Urine Ketones 1+ H (Negative) Urine Blood Negative (Negative) Urine Nitrite Negative (Negative) Urine Bilirubin Negative (Negative) Urine Urobilinogen Negative (Negative) Ur Leukocyte Esterase Negative (Negative) Urine WBC (Auto) 1-5 (0-5) /hpf Urine RBC (Auto) 0-4 (0-4) /hpf U Hyaline Cast (Auto) 0 (0-5) /lpf U Epithel Cells (Auto) >30 H (0-5) /lpf Urine Bacteria (Auto) Negative (Negative) Ur Renal Epithelial Cell 20-30 H (0-5) /lpf _ (1) Dementia Alzheimer's disease onset: Dementia behavioral disturbance: without behavioral disturbance Dementia type: unspecified type Qualified Code(s): F03.90 - Unspecified dementia without behavioral disturbance (2) Distal radial fracture Encounter type: initial encounter Fracture healing: Fracture morphology: Colles' Fracture type: closed Laterality: left Open fracture type: Qualified Code(s): S52.532A - Colles' fracture of left radius, initial encounter for closed fracture (3) Fall Encounter type: initial encounter Qualified Code(s): W19.XXXA - Unspecified fall, initial encounter
--- NOTE | 2018-09-21 16:26 | Orthopedic Consultation ---
Date of Consultation September 21, 2018 Assessment & Plan (1) Distal radius fracture, left: Patient and her were educated regarding today's findings. Conservative care measures were discussed. She is not a good surgical candidate. She may have this treated nonoperatively. Patient's Ortho-Glass splint was removed and she was placed in an eXos splint. This will remain in place at all times. Her was shown how to remove it to do skin checks. Continue with ice, elevation, and Tylenol as needed for pain relief. I would avoid narcotic medications in this patient due to her cognitive impairment. Follow-up in the office in approximately 10 days for reassessment and new images. She may apply ice directly over the splint. Patient was seen in conjunction with Dr. William, who also evaluated the patient at this visit and concurred with today's treatment plan. I, Dr. William, saw and examined the patient and discussed the management with my PA. I reviewed my PAs note and agree with the documented findings and the plan of care I developed. Supervising Physician Co-Signing Physician Carissa william History of Present Illness Reason for Consultation: Left distal radius fracture Attending Physician: David Day History of Present Illness This 87-year-old white female is seen in 216 today. She is well-known to me from the office. She fell at home over the weekend and sustained a distal radius fracture that was slightly angulated and displaced. She was initially seen in the emergency department and had a volar splint placed after some gentle manipulation. Fracture alignment was improved. Patient does have dementia and kept picking at her splint, according to her . He was unable to care for her at home. He brought her back to the ED to see about placement until her fracture heals. Left hand dominant. She denies any numbness or tingling. No prior history of significant wrist injury. She does have frequent falls at home. Allergies Allergy/AdvReac Type Severity Reaction Status Date / Time Sulfa (Sulfonamide Allergy Mild Unknown Verified 09/19/18 20:26 Antibiotics) Home Medications Home Medications Medication Instructions Recorded Confirmed Type acetaminophen [Tylenol Extra 1,000 mg PO UD 08/14/18 09/19/18 History Strength] atorvastatin 10 mg PO QAM 08/14/18 09/19/18 History calcium carbonate-vitamin D3 1 tab PO QAM 08/14/18 09/19/18 History [Caltrate 600 + D] donepezil 10 mg PO HS 08/14/18 09/19/18 History escitalopram oxalate 20 mg PO QAM 08/14/18 09/19/18 History finasteride [Propecia] 1 mg PO QAM 08/14/18 09/19/18 History flurbiprofen 100 mg PO BID 08/14/18 09/19/18 History levothyroxine 125 mcg PO 5XWK 08/14/18 09/19/18 History levothyroxine 225 mcg PO 2XWK 08/14/18 09/19/18 History lorazepam 0.5 mg PO BID 08/14/18 09/19/18 History qacralkjsewq-kpdb-kgjzp acid 1 tab PO QAM 08/14/18 09/19/18 History [Centrum] vit C-vit H-ypmxso-wev-om-3 1 cap PO BID 08/14/18 09/19/18 History [Ocuvite] lisinopril 10 mg PO DAILY 09/19/18 09/19/18 History memantine [Namenda XR] 28 mg PO QAM 09/19/18 09/19/18 History Patient History Medical History Osteoarthritis of knees, bilateral Dementia Surgical History Hx laparoscopic cholecystectomy Family History Other No pertinent family history Social History marital status: Current Living Situation: Significant Other current occupational status: retired Other Information That Helps Us Care for You: No Feels Safe at Home: Yes Safety Concerns: Feels Safe At This Time Smoking Status: Never smoker Do You Dip or Chew Tobacco: No Second Hand Exposure: No Hx Alcohol Use: No Hx Substance Use: No Beliefs That Will Affect Care: Sabianism Sabianism Beliefs: Baptist Communication Ability: Effective Review of Systems Unable to be completed secondary to patients dementia. Physical Exam 2 Vital Signs (Past 24 Hours): Last Vital Signs Temp 36.9 C 09/21/18 15:33 Pulse 71 09/21/18 16:00 Resp 18 09/21/18 15:33 BP 189/83 H 09/21/18 15:33 Pulse Ox 98 09/21/18 15:33 Physical Exam: General: Frail, elderly white female, in no acute distress. Laying in the bed. Pleasantly confused. Skin: Warm and dry with fair turgor. No rashes or lesions. Various areas of ecchymosis on her upper extremities. No erythema. Mild edema is visible at her wrist, hand, and digits. The patient is not diaphoretic. No abrasions. Musculoskeletal: Patient has obvious thickening at her wrist. She has full flexion and extension of her elbow without discomfort. She has limited supination and pronation secondary to pain at the wrist. No pain with palpation over the humerus, elbow, radial head, or midshaft forearm. She does have pain with palpation over the distal radius and ulna. No pain with palpation over her hand or digits. Motor function of the fingers and thumb is intact and unremarkable. She is able to fully extend her fingers and make a full fist. Neurologic: Gross sensation is intact across the left arm, hand, and digits by soft touch. Peripheral pulses are 2+. Capillary refill is equal for each of the fingers. Radial, median, and ulnar nerve functions are intact for motor and sensory. Results & Data Diagnostic Findings Radiographic imaging previously obtained 2 days ago was reviewed with Dr. William. She has a mildly displaced distal radius fracture. Alignment is acceptable.
[2018-09-21] MEDS: DONEPEZIL HCL 10 MG TAB PO SCH (20:15)
[2018-09-21] MEDS ORDERED: LABETALOL HCL IV 5 MG/ML 20ML IV STA (23:52)
[2018-09-22] MEDS ORDERED: ACETAMINOPHEN 65 ML IV ONE (00:15)
[2018-09-22] MEDS: LEVOTHYROXINE SODIUM 125 MCG TABLET PO SCH (06:15)
[2018-09-22] MEDS ORDERED: LEVOTHYROXINE SODIUM 100 MCG TABLET PO SCH (06:30)
[2018-09-22 06:35] LABS: Hematocrit (blood only) 39.5 % (37-47); Hemoglobin 12.9 g/dL (12.0-16.0); Mean Corpuscular Hgb Conc 32.7 g/dL (32-36); Mean Corpuscular Volume 88.8 fL (80-100); Mean Platelet Volume 10.7 fL (7.4-10.4); Platelet Count 243 K/uL (130-400); RDW Coefficient of Variation 16.2 % (11.5-14.5); RDW Standard Deviation 51.8 fL (36.4-46.3); Red Blood Count 4.45 M/uL (4.2-5.4); White Blood Count 10.07 K/uL (4.8-10.8)
[2018-09-22 07:09] LABS: BUN Creatinine Ratio 49.8 (10-20); Calcium 8.7 mg/dl (8.5-10.1); Est GFR (African American) 67.5; Est GFR (Non-African American) 58.3; Magnesium 2.4 mg/dl (1.8-2.4)
[2018-09-22] MEDS: LORazepam 0.5 MG TAB PO SCH ×3 (07:23→19:45)
[2018-09-22] MEDS: CALCIUM 600MG + VIT D 400 IU TAB PO SCH (07:24)
[2018-09-22] MEDS: CEROVITE ADV FORMULA TAB PO SCH (07:24)
[2018-09-22] MEDS: ATORVASTATIN 10 MG TAB PO SCH (07:24)
[2018-09-22] MEDS: ESCITALOPRAM OXALATE 20 MG TAB PO SCH (07:24)
[2018-09-22] MEDS: ENOXAPARIN INJ 40 MG/0.4 ML SYR SQ SCH (07:25)
[2018-09-22] MEDS: MEMANTINE HCL 10 MG TAB PO SCH ×2 (07:26→19:40)
[2018-09-22] MEDS ORDERED: ACETAMINOPHEN 65 ML IV SCH (08:00)
[2018-09-22] MEDS ORDERED: NIFEdipine 10 MG CAP PO SCH (09:15)
--- NOTE | 2018-09-22 09:25 | Orthopedic Progress Note ---
Date of Service September 22, 2018 Assessment & Plan (1) Distal radius fracture, left: Continue Exos splint left wrist. Keep on at all times. Non weight bearing left hand/wrist Ice PRN for pain/swelling. Encourage ROM fingers left hand Elevate left hand above heart to relieve pain/swelling. Follow up in approximately 10 days with Phil Cruz PA-C. Subjective Sitting in chair, at bedside. Physical Exam 2 Vital Signs (Past 24 Hours): Last Vital Signs Temp 36.7 C 09/22/18 07:04 Pulse 73 09/22/18 08:00 Resp 16 09/22/18 07:04 BP 182/76 H 09/22/18 07:04 Pulse Ox 96 09/22/18 07:04 Physical Exam: Left wrist in Exos splint. Skin around splint intact, mild edema in fingers, but tolerates gentle ROM of fingers. Mild ecchymosis into base of fingers. Distal sensation seems normal. Cap refill brisk. Splint intact.
[2018-09-22] MEDS: LISINOPRIL 20 MG TAB PO SCH (10:27)
[2018-09-22] MEDS: METOPROLOL TARTRATE 25 MG TAB PO SCH ×2 (10:27→19:40)
[2018-09-22] MEDS: NIFEdipine EXTENDED REL 30 MG TABCR PO SCH (12:37)
--- NOTE | 2018-09-22 14:03 | Hospitalist Progress Note ---
Date of Service September 22, 2018 Assessment & Plan (1) Distal radial fracture: - Presented to ER on 09/19 with distal radial fracture and issues with care at home. - Continue Exos splint; ortho consulted, appreciate input. - Ice prn pain/swelling; encourage ROM of left hand and keep arm elevated. - Tylenol 650 mg q6hr scheduled; avoid narcotics if possible. - Will need f/u in 10 days. (2) Fall: - Her cannot care for her at home; 2 daughters do not live close by. - PT/OT ordered -- will be discharged to acute rehab vs. SNF when clinically stable. (3) Acute encephalopathy: - Possibly related to hospital delirium vs. infection. Is not at baseline. - U/a negative for infection. - Avoid overuse of benzos/narcotics if possible. - TSH 0.816, Free T4 2.20. - Start Risperdal 0.5 mg qhs scheduled for agitation/sundowning. (4) Dementia: - Continue home Aricept 10 mg qhs; Namenda 10 mg BID (home med is non- formulary) (5) HTN (hypertension): - Has ongoing HTN despite addition of BB; SBP is 180-190's. - Likely related to uncontrolled anxiety vs. pain. - Increased Lisinopril to 20 mg daily. - Started Metoprolol 25 mg PO BID. - Will add Nefedipine XR 30 mg daily today. - Increase Ativan to 1 mg PO TID. (6) Hyperlipidemia: - Continue Atorvastatin as prescribed. (7) Depression: - Continue Lexapro as prescribed. (8) Anxiety: - Increase home Ativan to 1 mg PO TID. (9) Hypothyroidism: - Continue Synthroid as prescribed. - TSH WNL, Free T4 elevated on labwork. (10) DVT prophylaxis: - Lovenox 40 mg daily. Dispo: Discharge to acute rehab vs. SNF pending improvement in BP. Supervising Physician Co-Signing Physician Notes Attending Attestation - Chart reviewed in detail, and care plan d/w FAITH Clements. I agree w/ the campbell components of her documentation. Pt with ongoing encephalopathy/delirium. Suspect this is hospital psychosis in the setting of advanced dementia. Agree with the ativan adjustment and addition of low-dose risperdal at HS. Since BPs still remain high despite treating the agitation/delirium I think we are forced to add another BP agent. Will need to be cautious, however, about over-treating; orthostatic BPs will need to be followed. David Day MD Subjective BP remains elevated, likely related to pain that pt. is not reporting vs. severe anxiety. She has a history of anxiety, on Ativan at home. No improvement after starting BB; will add CCB today and increase Ativan dose. Her is at bedside and reports pt. is more agitated today. He is concered that Ativan will not help with agitation. We discussed hospital delirium vs. underlying dementia. Review of Systems Other (Limited review of systems obtained due to cognitive status. ) Musculoskeletal: no joint pain Physical Exam 2 Vital Signs (Past 24 Hours): Last Vital Signs Temp 36.5 C 09/22/18 11:30 Pulse 64 09/22/18 11:30 Resp 18 09/22/18 11:30 BP 179/106 H 09/22/18 11:30 Pulse Ox 98 09/22/18 11:30 Physical Exam: General: Appears anxious, accompanied by at bedside. HEENT: NC/AT; PERRLA with EOMI; [employer] conjunctiva, MMM. Neck: Supple and nontender Cardiac: RRR Lungs: CTA bilaterally; No rhonchi, wheezing, or rales Abdomen: Bowel normoactive X 4; Nontender to palpation Extremities: Warm. Left wrist in splint, moderate edema noted in left hand. Neuro: No focal weakness Skin: No rash Results & Data Laboratory Results 09/22/18 09/22/18 Range/Units 06:12 06:12 WBC 10.07 (4.8-10.8) K/uL RBC 4.45 (4.2-5.4) M/uL Hgb 12.9 (12.0-16.0) g/dL Hct 39.5 (37-47) % MCV 88.8 (80-100) fL MCH 29.0 (25-34) pg MCHC 32.7 (32-36) g/dL RDW Std Deviation 51.8 H (36.4-46.3) fL RDW Coeff of Jhon 16.2 H (11.5-14.5) % Plt Count 243 (130-400) K/uL MPV 10.7 H (7.4-10.4) fL Sodium 137 (136-145) mmol/L Potassium 4.0 (3.5-5.1) mmol/L Chloride 105 (98-107) mmol/L Carbon Dioxide 24 (21-32) mmol/L Anion Gap 8.0 (3-11) BUN 45 H D (7-18) mg/dl Creatinine 0.89 (0.6-1.2) mg/dl Est Cr Clr Drug Dosing 32.0 ml/min Est GFR ( Amer) 67.5 Est GFR (Non-Af Amer) 58.3 BUN/Creatinine Ratio 49.8 H (10-20) Glucose 102 H (70-99) mg/dl Calcium 8.7 (8.5-10.1) mg/dl Magnesium 2.4 (1.8-2.4) mg/dl _ (1) Dementia Alzheimer's disease onset: Dementia behavioral disturbance: without behavioral disturbance Dementia type: unspecified type Qualified Code(s): F03.90 - Unspecified dementia without behavioral disturbance (2) Distal radial fracture Encounter type: initial encounter Fracture healing: Fracture morphology: Colles' Fracture type: closed Laterality: left Open fracture type: Qualified Code(s): S52.532A - Colles' fracture of left radius, initial encounter for closed fracture (3) Fall Encounter type: initial encounter Qualified Code(s): W19.XXXA - Unspecified fall, initial encounter
[2018-09-22] MEDS: ACETAMINOPHEN 325 MG TAB PO SCH ×2 (17:25→22:15)
[2018-09-22] MEDS: DONEPEZIL HCL 10 MG TAB PO SCH (19:41)
[2018-09-22] MEDS ORDERED: risperiDONE 0.5 MG TABLET PO SCH (21:00)
[2018-09-23] MEDS: ACETAMINOPHEN 325 MG TAB PO SCH ×4 (04:05→23:02)
[2018-09-23] MEDS: LEVOTHYROXINE SODIUM 125 MCG TABLET PO SCH (05:46)
[2018-09-23 06:34] LABS: BUN Creatinine Ratio 54.5 (10-20); Calcium 8.8 mg/dl (8.5-10.1); Creatinine Clr Calc Pharmacy 34.3 ml/min; Est GFR (African American) 73.5; Est GFR (Non-African American) 63.4; Potassium 3.9 mmol/L (3.5-5.1)
--- NOTE | 2018-09-23 08:39 | Orthopedic Progress Note ---
Date of Service September 23, 2018 Assessment & Plan (1) Distal radius fracture, left: Continue with Exos splint. Follow-up in the office in approximately 8 days for reexamination with new x-rays. Continue with ice and elevation frequently to reduce pain and swelling. Tylenol every 6 hours as needed for discomfort. We will continue to follow while she is here in the hospital. Present on Admission?: Yes Subjective Patient is seen in her room this morning. She is pleasantly confused. She has no complaints about her left arm. She denies any numbness or tingling. Her is not present this morning. Physical Exam 2 Vital Signs (Past 24 Hours): Last Vital Signs Temp 36.3 C L 09/23/18 04:00 Pulse 87 09/23/18 04:00 Resp 15 09/23/18 04:00 BP 171/94 H 09/23/18 04:00 Pulse Ox 97 09/23/18 04:00 Physical Exam: Seated in her chair. Left arm has her Exos splint intact. Expected edema and ecchymosis in her hand and left digits. Intact motor function to the digits. Splint does not appear to be too tight. Neurovascular examination reveals intact capillary refill to her digits and intact sensation to all digits of the left hand.
[2018-09-23] MEDS: METOPROLOL TARTRATE 25 MG TAB PO SCH ×2 (08:40→19:49)
[2018-09-23] MEDS: ATORVASTATIN 10 MG TAB PO SCH (08:40)
[2018-09-23] MEDS: CEROVITE ADV FORMULA TAB PO SCH (08:41)
[2018-09-23] MEDS: LISINOPRIL 20 MG TAB PO SCH (08:41)
[2018-09-23] MEDS: CALCIUM 600MG + VIT D 400 IU TAB PO SCH (08:41)
[2018-09-23] MEDS: MEMANTINE HCL 10 MG TAB PO SCH ×2 (08:41→19:50)
[2018-09-23] MEDS: ESCITALOPRAM OXALATE 20 MG TAB PO SCH (08:41)
[2018-09-23] MEDS: NIFEdipine EXTENDED REL 30 MG TABCR PO SCH (08:41)
[2018-09-23] MEDS: ENOXAPARIN INJ 40 MG/0.4 ML SYR SQ SCH (08:42)
[2018-09-23] MEDS: LORazepam 0.5 MG TAB PO SCH ×3 (08:44→19:50)
--- NOTE | 2018-09-23 12:27 | Hospitalist Progress Note ---
Date of Service September 23, 2018 Assessment & Plan (1) Distal radial fracture: - Presented to ER on 09/19 with distal radial fracture and issues with care at home. - Continue Exos splint; ortho consulted, appreciate input. - Ice prn pain/swelling; encourage ROM of left hand and keep arm elevated. - Tylenol 650 mg q6hr scheduled; avoid narcotics if possible. - Will need f/u in 10 days. (2) Fall: - Her cannot care for her at home; 2 daughters do not live close by. - Will be discharged to acute rehab vs. SNF pending placement, needs updated PT/ OT notes. (3) Acute encephalopathy: - Possibly related to hospital delirium vs. infection. - U/a negative for infection. - Avoid overuse of benzos/narcotics if possible. - TSH 0.816, Free T4 2.20. - Increase Risperdal to 0.5 mg BID for agitation. (4) Dementia: - Continue home Aricept 10 mg qhs; Namenda 10 mg BID (home med is non- formulary) (5) SVT (supraventricular tachycardia): - Episode of SVT this morning, lasted ~5 seconds. - On Metoprolol 25 mg PO BID. (6) HTN (hypertension): - Remains hypertensive despite addition of 2 meds; outpatient records indicate she is well controlled on Lisinopril 10 mg daily. - Orthostatics were positive; will avoid further increase in meds, maintain current regimen. - Likely related to uncontrolled anxiety vs. other. - Increased Lisinopril to 20 mg daily. - Started Metoprolol 25 mg PO BID. - Added Nefedipine XR 30 mg daily. - Increased Ativan to 1 mg PO TID for anxiety. - Recommend orthostatics BID at rehab; may need to titrate down meds in future. (7) Hyperlipidemia: - Continue Atorvastatin as prescribed. (8) Depression: - Continue Lexapro as prescribed. (9) Anxiety: - Increased home Ativan to 1 mg PO TID. (10) Hypothyroidism: - Continue Synthroid as prescribed. - TSH WNL, Free T4 elevated on labwork. (11) DVT prophylaxis: - Lovenox 40 mg daily. Dispo: Discharge to acute rehab vs. SNF pending placement; needs updated PT/OT notes. Will need to touch base with rehab physician to discuss her case at discharge. Supervising Physician Co-Signing Physician Notes Attending attestation - Chart reviewed, care plan d/w PA Misty Clements. I agree with the campbell components of her documentation. Pt continues with significant dementia with behavioral disturbance/hospital delirium. This, in turn, continues to cause labile BPs. I agree with Ms. Clements's plans for BP control and the agitation. Continue to monitor. Supportive care/splint for left wrist fracture. David Day MD Subjective Pt. is doing well overall. She had episode of SVT this morning, lasted ~5 seconds. Agitation is improved, remains confused. Plan for discharge to rehab pending placement, needs updated PT/OT notes. Review of Systems Unobtainable due to cognitive status Physical Exam 2 Vital Signs (Past 24 Hours): Last Vital Signs Temp 36.7 C 09/23/18 11:59 Pulse 61 09/23/18 11:59 Resp 16 09/23/18 11:59 BP 150/86 H 09/23/18 11:59 Pulse Ox 94 09/23/18 11:59 Physical Exam: General: In no acute distress. HEENT: NC/AT; PERRLA with EOMI; [place] conjunctiva, MMM. Neck: Supple and nontender Cardiac: RRR Lungs: CTA bilaterally; No rhonchi, wheezing, or rales Abdomen: Bowel normoactive X 4; Nontender to palpation Extremities: Warm. Left wrist in splint. Mild RLE edema, slightly greater than left. Neuro: No focal weakness Skin: No rash Results & Data Laboratory Results 09/23/18 Range/Units 05:28 Sodium 138 (136-145) mmol/L Potassium 3.9 (3.5-5.1) mmol/L Chloride 107 (98-107) mmol/L Carbon Dioxide 25 (21-32) mmol/L Anion Gap 6.0 (3-11) BUN 45 H (7-18) mg/dl Creatinine 0.83 (0.6-1.2) mg/dl Est Cr Clr Drug Dosing 34.3 ml/min Est GFR ( Amer) 73.5 Est GFR (Non-Af Amer) 63.4 BUN/Creatinine Ratio 54.5 H (10-20) Glucose 108 H (70-99) mg/dl Calcium 8.8 (8.5-10.1) mg/dl _ (1) Dementia Alzheimer's disease onset: Dementia behavioral disturbance: without behavioral disturbance Dementia type: unspecified type Qualified Code(s): F03.90 - Unspecified dementia without behavioral disturbance (2) Distal radial fracture Encounter type: initial encounter Fracture healing: Fracture morphology: Colles' Fracture type: closed Laterality: left Open fracture type: Qualified Code(s): S52.532A - Colles' fracture of left radius, initial encounter for closed fracture (3) Fall Encounter type: initial encounter Qualified Code(s): W19.XXXA - Unspecified fall, initial encounter
[2018-09-23] MEDS: DONEPEZIL HCL 10 MG TAB PO SCH (19:49)
[2018-09-23] MEDS: risperiDONE 0.5 MG TABLET PO SCH (19:50)
[2018-09-24] MEDS: ACETAMINOPHEN 325 MG TAB PO SCH ×4 (04:36→19:39)
[2018-09-24] MEDS: LEVOTHYROXINE SODIUM 125 MCG TABLET PO SCH (05:55)
[2018-09-24 07:50] LABS: Calcium 8.8 mg/dl (8.5-10.1); Est GFR (Non-African American) 67.3; Magnesium 2.3 mg/dl (1.8-2.4)
[2018-09-24] MEDS: MEMANTINE HCL 10 MG TAB PO SCH ×2 (08:49→19:40)
[2018-09-24] MEDS: METOPROLOL TARTRATE 25 MG TAB PO SCH ×2 (08:49→19:39)
[2018-09-24] MEDS: CEROVITE ADV FORMULA TAB PO SCH (08:49)
[2018-09-24] MEDS: NIFEdipine EXTENDED REL 30 MG TABCR PO SCH (08:49)
[2018-09-24] MEDS: ESCITALOPRAM OXALATE 20 MG TAB PO SCH (08:49)
[2018-09-24] MEDS: ATORVASTATIN 10 MG TAB PO SCH (08:50)
[2018-09-24] MEDS: LISINOPRIL 20 MG TAB PO SCH (08:50)
[2018-09-24] MEDS: risperiDONE 0.5 MG TABLET PO SCH (08:50)
[2018-09-24] MEDS: CALCIUM 600MG + VIT D 400 IU TAB PO SCH (08:50)
[2018-09-24] MEDS: ENOXAPARIN INJ 40 MG/0.4 ML SYR SQ SCH ×2 (08:53→14:03)
[2018-09-24] MEDS: LORazepam 0.5 MG TAB PO SCH ×3 (08:58→21:28)
--- NOTE | 2018-09-24 17:05 | Hospitalist Progress Note ---
Date of Service September 24, 2018 Assessment & Plan (1) Distal radial fracture: - Presented to ER on 09/19 with distal radial fracture and issues with care at home. - Continue Exos splint; ortho consulted, appreciate input. - Ice prn pain/swelling; encourage ROM of left hand and keep arm elevated. - Tylenol 650 mg q6hr scheduled; avoid narcotics if possible. - Will need f/u in 1 week. (2) Fall: - Her cannot care for her at home; 2 daughters do not live close by. - Will be discharged to SNF on 09/25/18. (3) Acute encephalopathy: - Developed worsening lethargy this afternoon, likely related to increased benzo dose vs. other. - Avoid overuse of benzos/narcotics if possible. - Decrease Risperdal to 0.5 mg qhs and Ativan to 0.5 mg TID. (4) Dementia: - Continue home Aricept 10 mg qhs; Namenda 10 mg BID (home med is non- formulary) (5) SVT (supraventricular tachycardia): - Episode of SVT on 09/23, lasted ~5 seconds. - On Metoprolol 25 mg PO BID. (6) HTN (hypertension): - Remains hypertensive with SBP 170's; outpatient records indicate she is well controlled on Lisinopril 10 mg daily. - Orthostatics were positive; will avoid further increase in meds, maintain current regimen. - Likely related to uncontrolled anxiety vs. other. - Increased Lisinopril to 20 mg daily. - Started Metoprolol 25 mg PO BID. - Added Nefedipine XR 30 mg daily. - Ativan 0.5 mg TID for anxiety. - Recommend orthostatics BID at rehab; may need to titrate down meds in future. (7) Hyperlipidemia: - Continue Atorvastatin as prescribed. (8) Depression: - Continue Lexapro as prescribed. (9) Anxiety: - Ativan 0.5 mg TID for anxiety. (10) Hypothyroidism: - Continue Synthroid as prescribed. - TSH WNL, Free T4 elevated on labwork. (11) DVT prophylaxis: - Lovenox 40 mg daily. Dispo: Discharge to SNF pending improvement in mental status, likely on 09/25/18. Supervising Physician Co-Signing Physician Notes Attending Attestation - Pt seen/examined, chart reviewed, care plan d/w FAITH Clements. I agree w/ the campbell components of her documentation. Upon entering the room the pt's was at bedside. The patient was awake/alert; speech was difficult to understand. Pt's immediately told me that she "shouldn't be leaving today" because of her mental status. He felt she was too lethargic. He was also upset about other issues (bedside care, etc). We had a very lengthy discussion about dementia, hallucinations, "Sundowning", etc. I explained that the antipsychotic class of meds was our only option for controlling hallucinations, agitation, and severe sundowning. I further explained that the biggest side effect is that of sedation and that we try to balance this side effect with the need to control the above symptoms. I explained the plan of care (reducing the risperdal back to once daily dosing at HS) and backing off the ativan. He seemed content at the conclusion of our discussion. Exam - gen - thin elderly demented female in NAD, sentences are incongruent and difficult to follow mouth - MM slightly dry heart - RRR, s1 s2 lungs - CTA b/l abd - soft, NT, ND, BS+ ext - no edema psych - alert to person only; confused musculo - left wrist in splint A/P: left wrist fx - nonoperative management dementia with behavioral disturbance - risperdal HS, ativan TID (was taking latter chronically at home) hypothyroidism - compensated HTN - aggravated by severe agitation - meds have been added during this stay; component of orthostasis - would NOT treat elevated supine readings for fear of making orthostasis worse I'm ok with her staying an additional night to monitor her response to meds. d/c to SNF tomorrow. David Day MD Subjective Pt. was agitated this morning, asked provider to "please leave the room". This afternoon, she developed acute lethargy after receiving Ativan. Her was at bedside and was very concerned she was having a "mini stroke". Bedside nurse explained symptoms are likely related to psych medications/recent benzo use. Neuro exam was normal. Dr. Day spoke with the later in the afternoon. Her would prefer to keep her in the hospital another night for close monitoring. Plan for discharge tomorrow. Review of Systems Unobtainable due to cognitive status Physical Exam 2 Vital Signs (Past 24 Hours): Last Vital Signs Temp 36.7 C 09/24/18 15:37 Pulse 81 09/24/18 15:37 Resp 16 09/24/18 15:37 BP 166/78 H 09/24/18 15:37 Pulse Ox 98 09/24/18 15:37 Physical Exam: General: Appears agitated. HEENT: NC/AT; PERRLA with EOMI; [place] conjunctiva, MMM. Neck: Supple and nontender Cardiac: RRR Lungs: CTA bilaterally; No rhonchi, wheezing, or rales Abdomen: Bowel normoactive X 4; Nontender to palpation Extremities: Warm. Left wrist in splint. Mild RLE edema, slightly greater than left. Neuro: No focal weakness Skin: No rash Results & Data Laboratory Results 09/24/18 Range/Units 06:36 Sodium 137 (136-145) mmol/L Potassium 4.0 (3.5-5.1) mmol/L Chloride 106 (98-107) mmol/L Carbon Dioxide 25 (21-32) mmol/L Anion Gap 6.0 (3-11) BUN 42 H (7-18) mg/dl Creatinine 0.79 (0.6-1.2) mg/dl Est Cr Clr Drug Dosing 36.0 ml/min Est GFR ( Amer) 78.0 Est GFR (Non-Af Amer) 67.3 BUN/Creatinine Ratio 53.0 H (10-20) Glucose 108 H (70-99) mg/dl Calcium 8.8 (8.5-10.1) mg/dl Magnesium 2.3 (1.8-2.4) mg/dl _ (1) Dementia Alzheimer's disease onset: Dementia behavioral disturbance: without behavioral disturbance Dementia type: unspecified type Qualified Code(s): F03.90 - Unspecified dementia without behavioral disturbance (2) Distal radial fracture Encounter type: initial encounter Fracture healing: Fracture morphology: Colles' Fracture type: closed Laterality: left Open fracture type: Qualified Code(s): S52.532A - Colles' fracture of left radius, initial encounter for closed fracture (3) Fall Encounter type: initial encounter Qualified Code(s): W19.XXXA - Unspecified fall, initial encounter
[2018-09-24] MEDS: DONEPEZIL HCL 10 MG TAB PO SCH (19:40)
[2018-09-24] MEDS ORDERED: risperiDONE 0.5 MG TABLET PO SCH (21:00)
[2018-09-25] MEDS: ACETAMINOPHEN 325 MG TAB PO SCH ×2 (04:00→09:19)
[2018-09-25] MEDS: LEVOTHYROXINE SODIUM 125 MCG TABLET PO SCH (06:08)
[2018-09-25 07:13] LABS: BUN Creatinine Ratio 45.4 (10-20); Calcium 8.9 mg/dl (8.5-10.1); Creatinine Clr Calc Pharmacy 34.7 ml/min; Est GFR (African American) 74.6; Est GFR (Non-African American) 64.3; Potassium 4.1 mmol/L (3.5-5.1)
[2018-09-25] MEDS: ESCITALOPRAM OXALATE 20 MG TAB PO SCH (09:19)
[2018-09-25] MEDS: LORazepam 0.5 MG TAB PO SCH (09:19)
[2018-09-25] MEDS: METOPROLOL TARTRATE 25 MG TAB PO SCH (09:20)
[2018-09-25] MEDS: LISINOPRIL 20 MG TAB PO SCH (09:20)
[2018-09-25] MEDS: CALCIUM 600MG + VIT D 400 IU TAB PO SCH (09:20)
[2018-09-25] MEDS: NIFEdipine EXTENDED REL 30 MG TABCR PO SCH (09:20)
[2018-09-25] MEDS: CEROVITE ADV FORMULA TAB PO SCH (09:20)
[2018-09-25] MEDS: ATORVASTATIN 10 MG TAB PO SCH (09:21)
[2018-09-25] MEDS: MEMANTINE HCL 10 MG TAB PO SCH (09:21)
[2018-09-25] MEDS: ENOXAPARIN INJ 40 MG/0.4 ML SYR SQ SCH (09:21)
[2018-09-25 10:59] VITALS: O2SAT 98
[2018-09-25 11:51] VITALS: BP 115/78; PULSE 87; TEMP 98.6
--- NOTE | 2018-09-25 13:29 | Discharge Summary ---
Date of Service September 25, 2018 Admission HPI Per Admitting Provider 87F here with wrist fracture after a mechanical fall while at home yesterday. Pt presented to the ED earlier today, and imaging of her wrist revealed mildly displaced distal radius fracture of left hand, which was then cast and splinted. Imaging of her head, neck, and elbow did not reveal any acute abnormalities. She was discharged home with routine care instructions. Pt's family struggled to take care of pt in light of her confusion, called PCP for advice and decided together to return and seek more care here. They have her left extremity covered with a dish towel and secured by tape because "she won't stop picking at it". Pt does not endorse any pain at the moment in her left hand. HPI is limited due to pt's dementia. Family does not endorse any change in symptoms from earlier today. Admission Exam Per Admitting Provider Vitals noted as above and within normal limits. GENERAL: Awake, pleasantly confused, well-appearing, in no distress HENT: Normocephalic, atraumatic. EYES: Normal conjunctiva. Sclera non-icteric. EOMI. NECK: Supple. Full range of motion. no JVD RESPIRATORY: Clear to auscultation. CARDIAC: Regular rate, normal rhythm. Extremities warm and well perfused. Pulses equal. ABDOMEN: Soft, non-distended. No tenderness to palpation. No rebound or guarding. No masses. Bowel sounds are normal. LOWER EXTREMITIES: Calves are equal size bilaterally and non-tender. No edema. No discoloration. NEURO: No gross focal motor deficits noted. CN II-XII in tact SKIN: Rash not present. No jaundice noted. MSK: left wrist in splint, in tact. Sensation in tact distal to splint. Principal Diagnosis LEFT Distal Radial Fracture, Dementia with behavioral disturbance Discharge Exam General: In no acute distress HEENT: NC/AT; PERRLA with EOMI; [place] conjunctiva, MMM. Neck: Supple and nontender Cardiac: RRR Lungs: CTA bilaterally; No rhonchi, wheezing, or rales Abdomen: Bowel normoactive X 4; Nontender to palpation Extremities: Warm. Left wrist in splint. No LE edema noted. Neuro: No focal weakness Skin: No rash Discharge Data Allergies Allergy/AdvReac Type Severity Reaction Status Date / Time Sulfa (Sulfonamide Allergy Mild Unknown Verified 09/19/18 20:26 Antibiotics) Consultations 09/19/18 22:21 ED Decision to Admit Stat 09/20/18 01:13 Consult Case Management - Discharge Planning Routine 09/21/18 11:08 Consult Orthopedic Surgery Routine Hospital Course (1) Distal radial fracture: Pt. presented to the ER on 09/19 with a distal radial fracture. She was discharged to home with a splint in place. She returned to the ER later in the evening as pt. was confused at home. Orthopedics was consulted during this admission and applied an Exos splint. She will f/u with orthopedics in 1 week. Tylenol was ordered q6hr; narcotics were avoided due to altered mental status. (2) Fall: Her cannot care for her at home; 2 daughters do not live close by. Pt. was discharged to SNF on 09/25/18. (3) Acute encephalopathy: Pt. had intermittent confusion during this admission. Infectious work up was negative. TSH and Free T4 were normal. Overuse of narcotics was avoided. Ativan was slowly increased due to anxiety; ativan dose was decreased to 0.5 mg TID on 09/24/18 due to lethargy. Risperdal was also started; pt. did not tolerate BID dosing, therefore dose was decreased to 0.5 mg qhs. She remained mildly confused at discharge likely related to hospital delirium vs. dementia. (4) Dementia: Continued home Aricept 10 mg qhs; Namenda 10 mg BID (home med is non- formulary). (5) SVT (supraventricular tachycardia): Episode of SVT on 09/23, lasted ~5 seconds. On Metoprolol 25 mg PO BID. (6) HTN (hypertension): Pt. was hypertensive with SBP >200's at beginning of admission. Home lisinopril 10 mg daily was continued as prescribed. She required 2 doses of IV Labetaolol due to severe HTN. Lisinopril dose was increased to 20 mg daily; Metoprolol 25 mg BID and Nifedipine 30 mg were added with improvement. Ativan was increased to 1 mg TID due to anxiety driven HTN; she became lethargic -- therefore dose was decreased to 0.5 mg TID at discharge. Orthostatics were positive; medications were not adjusted. SBP was elevated, average ~140-150's at discharge. (7) Hyperlipidemia: Continued Atorvastatin as prescribed. (8) Depression: Continued Lexapro as prescribed. (9) Anxiety: Ativan was adjusted as noted above. Will continue 0.5 mg PO TID at discharge. (10) Hypothyroidism: Continued Synthroid as prescribed. TSH WNL, Free T4 elevated on labwork. (11) Chronic kidney disease, stage 3a: (12) Dementia with behavioral disturbance: (13) DVT prophylaxis: Lovenox 40 mg daily. Pt. was stable for discharge to [facility] on 09/25/18. Total Time Total Time Spent Total Time Spent (In Minutes): >30 minutes Total Time Includes: Examination of the Patient, Discharge Planning, Medication Reconciliation, Communication With Other Providers and Other Discharge Plan Discharge Items Patient Disposition: Transfer Alf Fac Reason For Visit: WRIST FRACTURE, DEMENTIA Discharge Diagnosis: Distal Radial Fracture, Dementia Condition: Fair Discharge Goals: Decrease discomfort, Improve disease control, Improve function , Increase independence and Prevent disease Activity: As commented below Activity Comment: per PT/OT recs. Non-emergency contact: Primary Care Provider Call non-emergency contact if: you have any medication questions, your symptoms worsen, your pain is worsening and you have a fever Follow-up/Referrals: Edd William MD [Physician] - (Please follow up with orthopedics in 1 week. ) Diet: Heart Healthy Diet Comment: Please administer pills crushed with applesauce. Addtl Provider Instructions: 1. Distal Radial Fracture * Pt. has splint in place; please do not remove. * Continue Tylenol 650 mg q6hr for pain control. * Please keep arm elevated and apply ice as needed. * Pt. will need to follow up with Phil Cruz PA-C from orthopedics in 1 week. 2. Dementia * Pt. developed agitation during this admission, likely related to hospital delirium. * Please continue Risperdal 0.5 mg at bedtime. * Home Ativan was increased to 0.5 mg TID due to severe anxiety. Pt. has been tolerating this dose of medication. 3. Hypertension * Blood pressure has remained uncontrolled during this hospital stay. * Home Lisinopril was increased to 20 mg daily. * Metoprolol 25 mg BID and Nifedipine XR 30 mg daily was added. * BP meds were not titrated further as pt. had +orthostatic vital signs. * Continue to monitor blood pressure -- no further adjustment is necessary if pt. remains stable with SBP <180's. * Please monitor orthostatic vital signs daily. 4. Please schedule a follow up with her PCP in 2-3 weeks. Prescriptions: Continue atorvastatin 10 mg tablet 10 mg PO QAM RF: 0 donepezil 10 mg tablet 10 mg PO HS RF: 0 levothyroxine 125 mcg tablet 125 mcg PO 5XWK RF: 0 levothyroxine 125 mcg tablet 225 mcg PO 2XWK RF: 0 flurbiprofen 100 mg tablet 100 mg PO BID RF: 0 finasteride [Propecia] 1 mg Tablet 1 mg PO QAM RF: 0 escitalopram oxalate 20 mg tablet 20 mg PO QAM RF: 0 vit C-vit [id number]-om-3 [Ocuvite] [id number] tm-jhsc-th-mg Capsule 1 cap PO BID RF: 0 ppveioxxfhwq-qwbj-samli acid [Centrum] 18-400 mg-mcg Tablet 1 tab PO QAM RF: 0 calcium carbonate-vitamin D3 [Caltrate 600 + D] 600 mg (1,500 mg)-800 unit Tablet,Chewable 1 tab PO QAM RF: 0 memantine 28 mg capsule,sprinkle,ER 24hr 28 mg PO QAM RF: 0 Discontinued acetaminophen [Tylenol Extra Strength] 500 mg Tablet 1,000 mg PO UD RF: 0 lorazepam 0.5 mg tablet 0.5 mg PO BID RF: 0 lisinopril 10 mg Tablet 10 mg PO DAILY RF: 0 Stand-Alone Forms: [facility] Discharge Orders: Discharge Order (Routine); Ordered 09/25/18 Ordered By: Misty Clements Skilled Items Patient informed of condition?: Yes DNR: No Discharge Level of Care: Acute rehab Communicable Disease: No Discharge Prognosis: Improving Admission Data Admit Date/Time: 09/20/18 12:32 Attending Provider: David Day Admit Provider: Brii Pacheco Primary Care Provider: Jeffery Zarco Other Providers: Brii Pacheco ; Pj Gilbert ; Misty Clements ; Phil Cruz ; Edd William ; Karrie Webber Service: Telemetry Other Interventions: Discharge Summary Assessment (RN) Last Done: 09/25/18 11:48 Pending Studies at Discharge: No DC Date/Time DO NOT enter until pt leaves facility: 09/25/18 12:50 Supervising Physician Co-Signing Physician Notes Attending Discharge Note & Attestation - Pt seen/examined, chart reviewed, discharge care plan d/w FAITH Clements. I agree w/ the campbell components of her documentation. 87yo female with advanced dementia, HTN, & hypothyroidism who presented from home with a left distal radius fracture. Her reported that it was becoming increasingly more difficult to care for her at home. Placement for rehab was planned from the time of admission. Her stay was complicated by dementia with behavioral disturbance/hospital psychosis/encephalopathy as well as labile HTN. Multiple medication additions/adjustments were made for BP control, and her home ativan (she had been taking it for years) was increased to TID dosing. She ultimately required HS risperdal. At time of discharge the patient was alert - and pleasantly confused - but calm and able to follow simple commands. She is transferring to [facility] for placement. Left wrist fracture is being treated conservatively with splint; she will need ortho f/u after discharge. Discharge exam - gen - NAD, awake, alert, oriented to self only; calm mouth - MMM neck - no JVD heart - RRR, s1, s2 lungs - CTA b/l abd - soft, NT, ND, BS+ ext - no edema; left wrist in splint; minimal swelling left hand fingers; minimal ecchymoses left hand fingers David Day MD
== END 2018-09-25 12:50 | DRG 563 ==
LOC: 3W 19:41 → ED 19:41 → SUATTDRO 23:44 → 3W 09-20 01:12 → 1E 09-20 11:30 → SUATTDRO 09-20 12:32 → 2S 09-20 19:28